=== PATIENT | male | born 1975 | race African-American/Black ===

== ENCOUNTER 2016-07-12 04:46 | Emergency (ER) | payer OTHER ==
[~2016-07-12] VITALS: Ht 185.4 cm; Wt 82.6 kg
[~2016-07-12 04:46] MED LIST: ALBUTEROL SULF8.5 GM INH; CYCLOBENZAPRINE10 MG ORAL; IBUPROFEN600 MG ORAL; PREDNISONE20 MG ORAL; PROAIR HFA8.5 GM INH
[2016-07-12] MEDS ORDERED: PredniSONE 20mg tab ORAL ONE (05:00)
[2016-07-12] MEDS ORDERED: Ipratropium 0.02% Inh Soln 2.5ml UD HHN ONE (05:00)
[2016-07-12] MEDS ORDERED: Albuterol ud Inhalation HHN ONE ×2 (05:00→05:45)
[2016-07-12 05:21] VITALS: BP 145/95
[2016-07-12] MEDS ORDERED: DULERA 200 MCG/13 GM IH (06:13)
[2016-07-12] MEDS ORDERED: ALBUTEROL SULF8.5 GM INH (06:13)
[2016-07-12] MEDS ORDERED: PREDNISONE20 MG ORAL (06:13)
--- NOTE | 2016-07-12 06:13 | Emergency Room Report ---
History of Present Illness General Chief Complaint: Dyspnea/Respdistress Source: Patient, EMS Present Illness HPI Is a 41-year-old male with a history of asthma. He get frequent exacerbation. Patient presents with chief complaint shortness of breath. Onset last night. He is out of his inhaler. Denies any fever chills denies any nausea vomiting. He thinks to call and congestion cause him to have asthma exacerbation. EMS gave him a breathing treatment which helped. No other complaint. Allergies: Coded Allergies: No Known Allergies (Unverified , 09/26/14) Patient History Past Medical History: see triage record, old chart reviewed, asthma Past Surgical History: other Pertinent Family History: none Social History: Denies: drug use Immunizations: other Reviewed Nursing Documentation: PMH: Agreed, PSxH: Agreed Nursing Documentation-PMH Hx Hypertension: Yes Hx Asthma: Yes Hx Diabetes: Yes - BORDERLINE Review of Systems Eye: Denies: blurred vision, eye pain ENT: Denies: ear pain, nose congestion, throat swelling Respiratory: Reports: cough, shortness of breath, wheezing Cardiovascular: Denies: chest pain, palpitations Gastrointestinal: Denies: abdominal pain, diarrhea, nausea, vomiting Musculoskeletal: Denies: back pain, joint pain Skin: Denies: rash Neurological: Denies: headache, numbness Endocrine: Denies: increased thirst, increased urine Hematologic/Lymphatic: Denies: easy bruising All Other Systems: negative except mentioned in HPI Physical Exam Vital Signs Date Time Temp Pulse Resp B/P Pulse Ox O2 Delivery O2 Flow Rate FiO2 07/12/16 04:51 98.1 78 20 155/97 93 Room Air 07/12/16 05:21 10.0 vitals with hypertension and hypoxemia Sp02 EP Interpretation: abnormal General Appearance: well appearing, alert, mild distress Head: normocephalic, atraumatic Eyes: bilateral eye EOMI, bilateral eye PERRL ENT: hearing grossly normal, normal pharynx Neck: full range of motion, supple, no meningismus Respiratory: chest non-tender, accessory muscle use, wheezing Cardiovascular #1: regular rate, rhythm, no murmur Gastrointestinal: normal bowel sounds, non tender, no mass, no organomegaly, no bruit, non-distended Musculoskeletal: back normal, gait/station normal, normal range of motion Psychiatric: mood/affect normal Skin: warm/dry Medical Decision Making Diagnostic Impression: Primary Impression: Asthma exacerbation ER Course Patient with asthma exacerbation. Wheezing cleared. Oxygenation normal now. Patient felt better. We'll discharge home. Last Vital Signs Date Time Temp Pulse Resp B/P Pulse Ox O2 Delivery O2 Flow Rate FiO2 07/12/16 05:29 61 18 10.0 07/12/16 05:21 145/95 100 07/12/16 05:03 Room Air 07/12/16 04:51 98.1 Status: improved Disposition: HOME, SELF-CARE Condition: Stable Scripts Mometasone/Formoterol (DULERA 200 MCG/5 MCG INHALER) 13 Gm Hfa.aer.ad 13 GM IH BID, #1 UNIT Prov: GAVIN ARORA M.D. 07/12/16 Prednisone* (PREDNISONE*) 20 Mg Tablet 60 MG ORAL DAILY, #12 TAB Prov: GAVIN ARORA M.D. 07/12/16 Albuterol Sulfate* (ALBUTEROL SULFATE MDI*) 8.5 Gm Hfa.aer.ad 2 PUFF INH Q4H Y for cough/wheezing, #1 EA 0 Refills Prov: GAVIN ARORA M.D. 07/12/16 Referrals: [facility],REFERRING (PCP) Additional Instructions: Followup with your DrBoby in 7 days. Return if symptom worsen. GAVIN ARORA M.D. July 12, 2016 06:13
[2016-07-12 06:15] VITALS: BP 148/91
== END 2016-07-12 06:15 | disposition home or self-care (01) ==
LOC: EDBD 04:46 → EMR 05:49
DX: J45.901 Unspecified asthma with (acute) exacerbation (principal); I10 Essential (primary) hypertension
CPT/HCPCS: 94640; 94664; 99284

== ENCOUNTER 2016-07-16 | Emergency (ER) | payer OTHER ==
[~2016-07-16] VITALS: Ht 193 cm; Wt 82.6 kg
[~2016-07-16] MED LIST changes: +DULERA 200 MCG/13 GM IH
[2016-07-16 00:25] VITALS: BP 154/99
[2016-07-16] MEDS ORDERED: PredniSONE 20mg tab ORAL ONE (00:30)
[2016-07-16] MEDS ORDERED: Albuterol ud Inhalation HHN ONE ×2 (00:30→01:30)
[2016-07-16] MEDS ORDERED: Ipratropium 0.02% Inh Soln 2.5ml UD HHN ONE (00:30)
--- NOTE | 2016-07-16 01:52 | Emergency Room Report ---
History of Present Illness General Chief Complaint: Asthma Source: Patient Present Illness HPI Is a 41-year-old male with history of asthma. He was here couple days ago. I saw him then. He had asthma exacerbation that clear with treatment. I will for steroid inhalers. He never filled them. He said he said he get high on drugs. Now wheezing again. No medication. Denies any other complaint. No fever or chills. No nausea no vomiting. Worse with exertion. Worse with lying flat. Worse with coughing. Allergies: Coded Allergies: No Known Allergies (Unverified , 09/26/14) Patient History Past Medical History: see triage record, old chart reviewed, asthma Past Surgical History: none Pertinent Family History: none Social History: Reports: drug use, smoking Immunizations: other Reviewed Nursing Documentation: PMH: Agreed, PSxH: Agreed Nursing Documentation-PMH Hx Hypertension: Yes Hx Asthma: Yes Hx Diabetes: Yes - BORDERLINE Review of Systems Eye: Denies: blurred vision, eye pain ENT: Denies: ear pain, nose congestion, throat swelling Respiratory: Reports: cough, shortness of breath, wheezing Cardiovascular: Denies: chest pain, palpitations Gastrointestinal: Denies: abdominal pain, diarrhea, nausea, vomiting Musculoskeletal: Denies: back pain, joint pain Skin: Denies: rash Neurological: Denies: headache, numbness Endocrine: Denies: increased thirst, increased urine Hematologic/Lymphatic: Denies: easy bruising All Other Systems: negative except mentioned in HPI Physical Exam Vital Signs Date Time Temp Pulse Resp B/P Pulse Ox O2 Delivery O2 Flow Rate FiO2 07/16/16 00:15 97.9 59 16 159/100 98 Room Air vitals with htn Sp02 EP Interpretation: reviewed, normal General Appearance: well appearing, no apparent distress, alert Head: normocephalic, atraumatic Eyes: bilateral eye EOMI, bilateral eye PERRL ENT: hearing grossly normal, normal pharynx Neck: full range of motion, supple, no meningismus Respiratory: chest non-tender, wheezing Cardiovascular #1: regular rate, rhythm, no murmur Gastrointestinal: normal bowel sounds, non tender, no mass, no organomegaly, no bruit, non-distended Musculoskeletal: back normal, gait/station normal, normal range of motion Psychiatric: mood/affect normal Skin: warm/dry Medical Decision Making Diagnostic Impression: Primary Impression: Asthma exacerbation Additional Impression: Drug abuse ER Course Patient with the wheezing. Probably exacerbated from drugs of abuse. He cleared up with treatment. He still have his prescriptions. no evidence of respiratory failure, pneumonia, ACS, dissection to name a few.We'll discharge home. Last Vital Signs Date Time Temp Pulse Resp B/P Pulse Ox O2 Delivery O2 Flow Rate FiO2 07/16/16 01:11 76 18 99 Room Air 07/16/16 00:25 97.9 154/99 Status: improved Disposition: HOME, SELF-CARE Condition: Stable Referrals: [facility],REFERRING (PCP) Patient Instructions: Asthma, Adult Additional Instructions: Abstain from drugs and alcohol. Followup with your Dr. in 2 to 3 days. Return if worse. Go fill the prescriptions that I wrote 2 days ago. GAVIN ARORA M.D. July 16, 2016 01:52
[2016-07-16 01:56] VITALS: BP 147/84
[2016-07-16 01:58] VITALS: BP 147/84
== END 2016-07-16 01:58 | disposition home or self-care (01) ==
LOC: EMR 00:34
DX: J45.901 Unspecified asthma with (acute) exacerbation (principal); F19.10 Other psychoactive substance abuse, uncomplicated; F17.200 Nicotine dependence, unspecified, uncomplicated; I10 Essential (primary) hypertension
CPT/HCPCS: 94640; 94664; 99282

== ENCOUNTER 2017-01-09 22:38 | Emergency (ER) | payer OTHER ==
[~2017-01-09] VITALS: Ht 185.4 cm; Wt 82.6 kg
[2017-01-09 22:50] VITALS: BP 164/104
--- NOTE | 2017-01-09 22:50 | Emergency Room Report ---
History of Present Illness General Chief Complaint: Asthma Source: Patient Present Illness [facility] This is a 41-year-old male with a history of asthma. He has frequent exacerbation. He's been here several times for it and also outside hospitals. He came in with chief complaint of asthma exacerbation. Onset about an hour ago. He said it triggered by stress and anxiety. He was also a smoker. He denies any drug use other than marijuana. He was last seen at Hospital week ago. Was given a prescription for inhaler. He said he left it in his friend's car. Denies any recent steroid use. No nausea no vomiting. No fever or chills. Worse with exertion. Nothing made it better. Allergies: Coded Allergies: No Known Allergies (Unverified , 09/26/14) Patient History Past Medical History: see triage record, old chart reviewed, asthma Past Surgical History: none Pertinent Family History: none Social History: Reports: smoking, drug use Immunizations: other Reviewed Nursing Documentation: PMH: Agreed, PSxH: Agreed Nursing Documentation-PMH Hx Hypertension: Yes Hx Asthma: Yes Hx Diabetes: Yes - BORDERLINE Review of Systems Eye: Denies: eye pain, blurred vision ENT: Denies: ear pain, nose congestion, throat swelling Respiratory: Reports: cough, shortness of breath, wheezing Cardiovascular: Denies: chest pain, palpitations Gastrointestinal: Denies: abdominal pain, diarrhea, nausea, vomiting Musculoskeletal: Denies: back pain, joint pain Skin: Denies: rash Neurological: Denies: headache, numbness Endocrine: Denies: increased thirst, increased urine Hematologic/Lymphatic: Denies: easy bruising All Other Systems: negative except mentioned in HPI Physical Exam Vital Signs Date Time Temp Pulse Resp B/P (MAP) Pulse Ox O2 Delivery O2 Flow Rate FiO2 01/09/17 22:44 98.2 71 20 164/104 93 Room Air vitals with high blood pressure Sp02 EP Interpretation: normal, abnormal General Appearance: well appearing, no apparent distress, alert Head: normocephalic, atraumatic Eyes: bilateral eye PERRL, bilateral eye EOMI ENT: hearing grossly normal, normal pharynx Neck: full range of motion, supple, no meningismus Respiratory: chest non-tender, decreased breath sounds, accessory muscle use, wheezing Cardiovascular #1: regular rate, rhythm, no murmur Gastrointestinal: normal bowel sounds, non tender, no mass, no organomegaly, no bruit, non-distended Musculoskeletal: back normal, gait/station normal, normal range of motion Psychiatric: mood/affect normal Skin: warm/dry Medical Decision Making Diagnostic Impression: Primary Impression: Asthma exacerbation Qualified Codes: J45.41 - Moderate persistent asthma with (acute) exacerbation ER Course Patient presents with asthma exacerbation. Greatly improved after that lasted treatment and steroid. He would benefit from a steroid inhaler. Use Advair in the past with success. We'll put him back on it. No evidence of pneumonia, sepsis, dissection, ACS to name a few. Discharge. Last Vital Signs Date Time Temp Pulse Resp B/P (MAP) Pulse Ox O2 Delivery O2 Flow Rate FiO2 01/09/17 22:44 98.2 71 20 164/104 93 Room Air Status: improved Disposition: HOME, SELF-CARE Condition: Stable Scripts Fluticasone/Salmeterol (Advair 250-50 Diskus) 1 Each Blst.w.dev 1 PUFF INH EVERY 12 HOURS, #1 EA Prov: GAVIN ARORA M.D. 01/10/17 Prednisone* (PREDNISONE*) 20 Mg Tablet 60 MG ORAL DAILY, #12 TAB Prov: GAVIN ARORA M.D. 01/10/17 Albuterol Sulfate* (ALBUTEROL SULFATE MDI*) 8.5 Gm Hfa.aer.ad 2 PUFF INH Q4H Y for cough/wheezing, #1 EA 0 Refills Prov: GAVIN ARORA M.D. 01/10/17 Patient Instructions: Asthma, Adult Additional Instructions: Abstain from smoking. Followup with your DrBoby in 2-3 days. Return if worse. GAVIN ARORA M.D. Jan 09, 2017 22:50
[2017-01-09] MEDS ORDERED: Albuterol ud Inhalation HHN ONE ×2 (23:00→23:30)
[2017-01-09] MEDS ORDERED: Ipratropium 0.02% Inh Soln 2.5ml UD HHN ONE (23:00)
[2017-01-10 00:18] VITALS: BP 148/96
[2017-01-10] MEDS ORDERED: PREDNISONE20 MG ORAL (00:56)
[2017-01-10] MEDS ORDERED: ADVAIR 250-501 EACH INH (00:56)
[2017-01-10] MEDS ORDERED: ALBUTEROL SULF8.5 GM INH (00:56)
[2017-01-10] MEDS ORDERED: Albuterol ud Inhalation HHN ONE (01:00)
[2017-01-10 01:25] VITALS: BP 152/83
[2017-01-10 01:26] VITALS: BP 152/83
== END 2017-01-10 01:35 | disposition home or self-care (01) ==
LOC: EMR 23:11
DX: J45.901 Unspecified asthma with (acute) exacerbation (principal); I10 Essential (primary) hypertension; F17.200 Nicotine dependence, unspecified, uncomplicated
CPT/HCPCS: 80307; 94640; 94664; 99284

== ENCOUNTER 2017-02-20 00:55 | Emergency (ER) | payer OTHER ==
[~2017-02-20] VITALS: Ht 185.4 cm; Wt 80.7 kg
[~2017-02-20 00:55] MED LIST changes: +ADVAIR 250-501 EACH INH
[2017-02-20] MEDS ORDERED: Ipratropium 0.02% Inh Soln 2.5ml UD HHN ONE (01:00)
[2017-02-20] MEDS ORDERED: Albuterol ud Inhalation HHN ONE ×3 (01:00→05:15)
--- NOTE | 2017-02-20 01:02 | Emergency Room Report ---
History of Present Illness General Chief Complaint: Asthma Source: Patient Present Illness HPI Is a 41-year-old male with a history of asthma. I have seen him multiple times in the past. He goes to ER frequently. He presents with asthma exacerbation. Onset about 2 hours ago. He said he lost his inhaler. This is similar presentation in the past. No fever or chills. No nausea no vomiting. He called 911. EMS gave her a breathing treatment because of the wheezing. Worse with exertion. Better with rest. Allergies: Coded Allergies: No Known Allergies (Unverified , 09/26/14) Patient History Past Medical History: see triage record, old chart reviewed, asthma Past Surgical History: none Pertinent Family History: none Social History: Reports: smoking Immunizations: other Reviewed Nursing Documentation: PMH: Agreed, PSxH: Agreed Nursing Documentation-PMH Hx Hypertension: Yes Hx Asthma: Yes Hx Diabetes: Yes - BORDERLINE Review of Systems Eye: Denies: eye pain, blurred vision ENT: Denies: ear pain, nose congestion, throat swelling Respiratory: Reports: cough, shortness of breath, wheezing Cardiovascular: Denies: chest pain, palpitations Gastrointestinal: Denies: abdominal pain, diarrhea, nausea, vomiting Musculoskeletal: Denies: back pain, joint pain Skin: Denies: rash Neurological: Denies: headache, numbness Endocrine: Denies: increased thirst, increased urine Hematologic/Lymphatic: Denies: easy bruising All Other Systems: negative except mentioned in HPI Physical Exam Vital Signs Date Time Temp Pulse Resp B/P (MAP) Pulse Ox O2 Delivery O2 Flow Rate FiO2 02/20/17 00:53 99.1 86 16 132/78 96 Room Air vitals unremarkable Sp02 EP Interpretation: reviewed, normal General Appearance: well appearing, no apparent distress, alert Head: normocephalic, atraumatic Eyes: bilateral eye PERRL, bilateral eye EOMI ENT: hearing grossly normal, normal pharynx Neck: full range of motion, supple, no meningismus Respiratory: chest non-tender, respiratory distress - Mild, decreased breath sounds, wheezing Cardiovascular #1: regular rate, rhythm, no murmur Gastrointestinal: normal bowel sounds, non tender, no mass, no organomegaly, no bruit, non-distended Musculoskeletal: back normal, gait/station normal, normal range of motion Psychiatric: mood/affect normal Skin: warm/dry Medical Decision Making Diagnostic Impression: Primary Impression: Asthma exacerbation Qualified Codes: J45.41 - Moderate persistent asthma with (acute) exacerbation ER Course This patient presents with asthma exacerbation. He required multiple treatment. Now better. Wheezing almost resolved. Back to baseline. We'll discharge home. No evidence of ACS, PE, pneumonia. Last Vital Signs Date Time Temp Pulse Resp B/P (MAP) Pulse Ox O2 Delivery O2 Flow Rate FiO2 02/20/17 00:53 99.1 86 16 132/78 96 Room Air Status: improved Disposition: HOME, SELF-CARE Condition: Stable Scripts Prednisone* (PREDNISONE*) 20 Mg Tablet 60 MG ORAL DAILY, #12 TAB Prov: GAVIN ARORA M.D. 02/20/17 Albuterol Sulfate* (ALBUTEROL SULFATE MDI*) 8.5 Gm Hfa.aer.ad 2 PUFF INH Q4H Y for cough/wheezing, #1 EA 0 Refills Prov: GAVIN ARORA M.D. 02/20/17 Patient Instructions: Asthma, Adult Additional Instructions: Stop smoking. Followup with your DrBoby in 2-3 days. Return if worse. GAVIN ARORA M.D. Feb 20, 2017 01:01
[2017-02-20 01:07] VITALS: BP 132/78
[2017-02-20 02:42] VITALS: BP 141/81
[2017-02-20 04:12] VITALS: BP 141/79
[2017-02-20] MEDS ORDERED: PREDNISONE20 MG ORAL (06:10)
[2017-02-20] MEDS ORDERED: ALBUTEROL SULF8.5 GM INH (06:10)
[2017-02-20 06:12] VITALS: BP 128/69
[2017-02-20 06:19] VITALS: BP 128/69
== END 2017-02-20 06:20 | disposition home or self-care (01) ==
LOC: EDBD 00:55 → EMR 01:02
DX: J45.901 Unspecified asthma with (acute) exacerbation (principal); I10 Essential (primary) hypertension; F17.200 Nicotine dependence, unspecified, uncomplicated
CPT/HCPCS: 99284; J7512

== ENCOUNTER 2017-03-16 01:14 | Emergency (ER) | payer OTHER ==
[~2017-03-16] VITALS: Ht 185.4 cm; Wt 81.6 kg
[2017-03-16 01:15] VITALS: BP 123/100
[2017-03-16] MEDS ORDERED: ALBUTEROL2.5 MG/3 M INH (01:19)
[2017-03-16] MEDS ORDERED: ADVAIR HFA 115-12 GM INH (01:19)
--- NOTE | 2017-03-16 01:29 | Emergency Room Report ---
History of Present Illness General Chief Complaint: Asthma Source: Patient Present Illness HPI Is a 41-year-old male well-known to me. He presents with chief complaint of shortness of breath and wheezing. He is out of his inhaler. Is a frequent occurrence. Onset today. No nausea no vomiting. No fever or chills. Worse with inspiration. He [address] EMS gave him breathing treatment. He felt better now. Denies any other complaint. Allergies: Coded Allergies: No Known Allergies (Unverified , 09/26/14) Patient History Past Medical History: see triage record, old chart reviewed, asthma Past Surgical History: other Pertinent Family History: none Social History: Denies: smoking Immunizations: other Reviewed Nursing Documentation: PMH: Agreed, PSxH: Agreed Nursing Documentation-PMH Hx Hypertension: Yes Hx Asthma: Yes Review of Systems Eye: Denies: eye pain, blurred vision ENT: Denies: ear pain, nose congestion, throat swelling Respiratory: Reports: cough, shortness of breath, wheezing Cardiovascular: Denies: chest pain, palpitations Gastrointestinal: Denies: abdominal pain, diarrhea, nausea, vomiting Musculoskeletal: Denies: back pain, joint pain Skin: Denies: rash Neurological: Denies: headache, numbness Endocrine: Denies: increased thirst, increased urine Hematologic/Lymphatic: Denies: easy bruising All Other Systems: negative except mentioned in HPI Physical Exam Vital Signs Date Time Temp Pulse Resp B/P (MAP) Pulse Ox O2 Delivery O2 Flow Rate FiO2 03/16/17 01:15 77 Room Air 98 03/16/17 01:16 98.6 14 123/100 100 vitals unremarkable Sp02 EP Interpretation: reviewed, normal General Appearance: well appearing, no apparent distress, alert Head: normocephalic, atraumatic Eyes: bilateral eye PERRL, bilateral eye EOMI ENT: hearing grossly normal, normal pharynx Neck: full range of motion, supple, no meningismus Respiratory: chest non-tender, decreased breath sounds, wheezing - Mild Cardiovascular #1: regular rate, rhythm, no murmur Gastrointestinal: normal bowel sounds, non tender, no mass, no organomegaly, no bruit, non-distended Musculoskeletal: back normal, gait/station normal, normal range of motion Psychiatric: mood/affect normal Skin: warm/dry Medical Decision Making Diagnostic Impression: Primary Impression: Asthma exacerbation Qualified Codes: J45.21 - Mild intermittent asthma with (acute) exacerbation ER Course Patient with asthma exacerbation. No evidence of PE, pneumonia, dissection to name a few. Better after breathing treatment. We'll discharge home. Last Vital Signs Date Time Temp Pulse Resp B/P (MAP) Pulse Ox O2 Delivery O2 Flow Rate FiO2 03/16/17 01:16 98.6 77 14 123/100 100 Room Air 03/16/17 01:15 98 Status: improved Disposition: HOME, SELF-CARE Condition: Stable Scripts Prednisone* (PREDNISONE*) 20 Mg Tablet 60 MG ORAL DAILY, #12 TAB Prov: GAVIN ARORA M.D. 03/16/17 Fluticasone Furoate (Arnuity Ellipta) 200 Mcg Blst.w.dev 200 MCG IH BID, #1 UNIT Prov: GAVIN ARORA M.D. 03/16/17 Albuterol Sulfate* (ALBUTEROL SULFATE MDI*) 8.5 Gm Hfa.aer.ad 2 PUFF INH Q4H Y for cough/wheezing, #1 EA 0 Refills Prov: GAVIN ARORA M.D. 03/16/17 Patient Instructions: Asthma, Adult Additional Instructions: Followup with your Dr. in 7 days. Return if symptom worsen. GAVIN ARORA M.D. Mar 16, 2017 01:29
[2017-03-16] MEDS ORDERED: Albuterol ud Inhalation HHN ONE ×2 (01:30→02:15)
[2017-03-16] MEDS ORDERED: PREDNISONE20 MG ORAL (01:31)
[2017-03-16] MEDS ORDERED: ARNUITY ELLIP200 MCG IH (01:31)
[2017-03-16] MEDS ORDERED: ALBUTEROL SULF8.5 GM INH (01:31)
[2017-03-16] MEDS ORDERED: Ipratropium 0.02% Inh Soln 2.5ml UD HHN ONE (01:45)
[2017-03-16 02:58] VITALS: BP 140/75
[2017-03-16 03:05] VITALS: BP 140/75
== END 2017-03-16 03:05 | disposition home or self-care (01) ==
LOC: EDBD 01:14 → EDUNIT# 01:14 → EMR 01:30
DX: J45.901 Unspecified asthma with (acute) exacerbation (principal); I10 Essential (primary) hypertension
CPT/HCPCS: 94640; 94664; 99284; J7512

== ENCOUNTER 2017-07-29 02:27 | Emergency (ER) | payer OTHER ==
[~2017-07-29] VITALS: Ht 185.4 cm; Wt 80.7 kg
[~2017-07-29 02:27] MED LIST changes: +ADVAIR HFA 115-12 GM INH; +ALBUTEROL2.5 MG/3 M INH; +ARNUITY ELLIP200 MCG IH
[2017-07-29 02:35] VITALS: BP 153/95
[2017-07-29] MEDS: Albuterol ud Inhalation HHN SCH ×6 (02:44→04:29)
[2017-07-29] MEDS ORDERED: Ipratropium 0.02% Inh Soln 2.5ml UD HHN ONE (02:45)
--- NOTE | 2017-07-29 02:48 | Emergency Room Report ---
History of Present Illness General Chief Complaint: Dyspnea/Respdistress Source: Patient, EMS Present Illness HPI 42-year-old male with history of asthma, current smoker p/w SOB for 1 days. SOB occurs both at rest and on exertion. + non productive cough. Denies chest pain. Patient has been using albuterol inhaler every 2 hours. Patient does not have nebulizer at home. No recent steroid use. Pt states that this episode is similar to other episodes of asthma exacerbation. Denies fever, chills. Denies sick contacts or recent travel. Allergies: Coded Allergies: No Known Allergies (Unverified , 09/26/14) Patient History Past Medical History: see triage record Past Surgical History: none Pertinent Family History: none Reviewed Nursing Documentation: PMH: Agreed; PSxH: Agreed Nursing Documentation-PMH Hx Hypertension: Yes Hx Asthma: Yes Hx Diabetes: Yes - BORDERLINE Review of Systems All Other Systems: negative except mentioned in HPI Physical Exam Vital Signs Date Time Temp Pulse Resp B/P (MAP) Pulse Ox O2 Delivery O2 Flow Rate FiO2 07/29/17 02:28 98.1 82 18 153/95 91 Room Air 98.1 Sp02 EP Interpretation: reviewed, normal General Appearance: alert, GCS 15, non-toxic, mild distress Head: normocephalic, atraumatic Eyes: bilateral eye normal inspection, bilateral eye PERRL, bilateral eye EOMI ENT: normal ENT inspection, normal pharynx, normal voice, moist mucus membranes Neck: normal inspection, full range of motion, supple Respiratory: respiratory distress, speaking full sentences, wheezing, expiration Cardiovascular #1: normal inspection, regular rate, rhythm, no edema, normal capillary refill Cardiovascular #2: 2+ radial (R), 2+ radial (L) Gastrointestinal: normal inspection, non tender, soft, non-distended, no guarding Genitourinary: no CVA tenderness Musculoskeletal: normal inspection, back normal, normal range of motion, non- tender Neurologic: normal inspection, alert, oriented x3, responsive, motor strength/ tone normal, sensory intact, normal gait, speech normal Psychiatric: normal inspection, judgement/insight normal, memory normal Skin: normal inspection, normal color, no rash, warm/dry, well hydrated, normal turgor Medical Decision Making Diagnostic Impression: Primary Impression: Asthma exacerbation ER Course 42-year-old male with history of asthma p/w SOB DDX: Asthma exacerbation Plan: Combivent nebulizer treatment x 3, steroids ER Course: Patient has been treated with combivent x 3, steroids, antibiotics.Patient's overall respiratory status has improved in ED. Patient states improvement of symptoms. Patient continues to speak in complete sentences and is not in respiratory distress. Repeat lung auscultation: good air entry with minimal/no wheezing. Repeat VS reveals normal RR and SpO2. Disposition: Patient will be discharged to home with course of steroids, albuterol and nebulizer, Patient is instructed to use albuterol inhaler as needed. Strict precautions are discussed with patient on when to emergently return to the ED including: persistent or worsening SOB, chest pain, fever, chills, which could indicate severe illness. Patient verbalized understanding. Patient is to follow up with her/his PMD within 5 days. Patient agrees with plan. Please note that this Emergency Department Report was dictated using [employer] technology software, occasionally this can lead to erroneous entry secondary to interpretation by the dictation equipment. Last Vital Signs Date Time Temp Pulse Resp B/P (MAP) Pulse Ox O2 Delivery O2 Flow Rate FiO2 07/29/17 02:28 98.1 82 18 153/95 91 Room Air 98.1 Disposition: HOME, SELF-CARE Condition: Improved Scripts Nebulizer (Compact Compressor Nebulizer) 1 Each Each [facility], #1 Prov: Kateryna Pickard M.D. 07/29/17 Albuterol Sulfate* (ALBUTEROL SULFATE HHN*) 2.5 Mg/3 Ml Vial.neb 2.5 MG HHN Q4H PRN for Shortness of Breath, #25 VIAL Prov: Kateryna Pickard M.D. 07/29/17 Prednisone* (PREDNISONE*) 20 Mg Tablet 40 MG ORAL DAILY for 5 Days, #10 TAB Prov: Kateryna Pickard M.D. 07/29/17 Referrals: [facility],REFERRING (PCP) Kateryna Pickard M.D. July 29, 2017 02:48
[2017-07-29] MEDS ORDERED: PREDNISONE20 MG ORAL (03:21)
[2017-07-29] MEDS ORDERED: COMPACT COMPRE1 EACH MC (03:21)
[2017-07-29] MEDS ORDERED: ALBUTEROL2.5 MG/3 M HHN (03:21)
[2017-07-29 04:30] VITALS: BP 134/62
[2017-07-29 04:40] VITALS: BP 134/62
== END 2017-07-29 04:40 | disposition home or self-care (01) ==
LOC: EDBD 02:27 → EMR 02:41
DX: J45.901 Unspecified asthma with (acute) exacerbation (principal)
CPT/HCPCS: 94640; 99284; J7512

== ENCOUNTER 2017-08-14 00:40 | Emergency (ER) | payer OTHER ==
[~2017-08-14] VITALS: Ht 185.4 cm; Wt 82.6 kg
[~2017-08-14 00:40] MED LIST changes: +ALBUTEROL2.5 MG/3 M HHN; +COMPACT COMPRE1 EACH MC
[2017-08-14 00:52] VITALS: BP 146/102
[2017-08-14] MEDS ORDERED: Ipratropium 0.02% Inh Soln 2.5ml UD HHN ONE (01:00)
[2017-08-14] MEDS ORDERED: Albuterol ud Inhalation HHN ONE ×2 (01:00→02:15)
--- NOTE | 2017-08-14 01:26 | Emergency Room Report ---
History of Present Illness General Chief Complaint: Asthma Source: Patient, Medical Record, EMS Present Illness HPI Is a 42-year-old male with a history of asthma. I seen in numerous times before. He also was seen here on July 29 for asthma exacerbation. He was prescribed an inhaler and steroid. He said because of the frequency of which she filled his medication, the pharmacy said he can't fill it until August 19. He then present to see her for the same thing. He received prescription for Singulair and Atrovent. He was able to fill that. He continued to smoke heavily for the next few days including marijuana. Now he presents with chief complaint of asthma exacerbation. Per EMS he was very tight tape gave him albuterol. He denies any fever chills but no nausea no vomiting. Worse with exertion. Better with rest. Again out of his albuterol inhaler. Allergies: Coded Allergies: No Known Allergies (Unverified , 09/26/14) Patient History Past Medical History: see triage record, old chart reviewed Past Surgical History: other Pertinent Family History: none Social History: Reports: smoking, drug use - marijuana Immunizations: other Reviewed Nursing Documentation: PMH: Agreed; PSxH: Agreed Nursing Documentation-PMH Hx Hypertension: Yes Hx Asthma: Yes Hx Diabetes: Yes - BORDERLINE Review of Systems Eye: Denies: eye pain, blurred vision ENT: Denies: ear pain, nose congestion, throat swelling Respiratory: Reports: cough, shortness of breath, wheezing Cardiovascular: Denies: chest pain, palpitations Gastrointestinal: Denies: abdominal pain, diarrhea, nausea, vomiting Musculoskeletal: Denies: back pain, joint pain Skin: Denies: rash Neurological: Denies: headache, numbness Endocrine: Denies: increased thirst, increased urine Hematologic/Lymphatic: Denies: easy bruising All Other Systems: negative except mentioned in HPI Physical Exam Vital Signs Date Time Temp Pulse Resp B/P (MAP) Pulse Ox O2 Delivery O2 Flow Rate FiO2 08/14/17 00:44 98.3 71 18 148/100 100 Simple Mask 5.0 98.2 08/14/17 01:04 40 vitals unremarkable Sp02 EP Interpretation: reviewed, normal General Appearance: well appearing, no apparent distress, alert Head: normocephalic, atraumatic Eyes: bilateral eye PERRL, bilateral eye EOMI ENT: hearing grossly normal, normal pharynx Neck: full range of motion, supple, no meningismus Respiratory: chest non-tender, decreased breath sounds, accessory muscle use, wheezing Cardiovascular #1: regular rate, rhythm, no murmur Gastrointestinal: normal bowel sounds, non tender, no mass, no organomegaly, no bruit, non-distended Musculoskeletal: back normal, gait/station normal, normal range of motion Psychiatric: mood/affect normal Skin: warm/dry Medical Decision Making Diagnostic Impression: Primary Impression: Asthma exacerbation Qualified Codes: J45.901 - Unspecified asthma with (acute) exacerbation ER Course Patient with asthma exacerbation. He is out of his inhaler of albuterol. Unable to fill it because of insurance. I will try to him an inhaler here. After several treatment and steroid he is back to baseline and no longer wheezing. Said he was to go home. We'll discharge home with prescription for prednisone. Last Vital Signs Date Time Temp Pulse Resp B/P (MAP) Pulse Ox O2 Delivery O2 Flow Rate FiO2 08/14/17 01:05 79 18 40 08/14/17 01:04 99 08/14/17 00:52 98.2 146/102 Simple Mask 5.0 98.2 Status: improved Disposition: HOME, SELF-CARE Condition: Stable Scripts Prednisone* (PREDNISONE*) 20 Mg Tablet 60 MG ORAL DAILY, #5 TAB Prov: GAVIN ARORA M.D. 08/14/17 Patient Instructions: Asthma, Adult Additional Instructions: Follow-up with your doctor in 7 days. Stop smoking. Return if worse. GAVIN ARORA M.D. Aug 14, 2017 01:26
[2017-08-14 01:52] VITALS: BP 136/84
[2017-08-14] MEDS ORDERED: PREDNISONE20 MG ORAL (02:56)
[2017-08-14] MEDS ORDERED: Albuterol 90mcg Inhaler 8gm INH PRN (03:00)
[2017-08-14 03:05] VITALS: BP 142/89
== END 2017-08-14 03:11 | disposition home or self-care (01) ==
LOC: EDBD 00:40 → EDUNIT# 00:40 → EMR 01:00
DX: J45.901 Unspecified asthma with (acute) exacerbation (principal); I10 Essential (primary) hypertension; E11.9 Type 2 diabetes mellitus without complications; F12.90 Cannabis use, unspecified, uncomplicated
CPT/HCPCS: 94640; 94664; 99283; J7512

== ENCOUNTER 2017-10-27 03:56 | Emergency (ER) | payer OTHER ==
[~2017-10-27] VITALS: Ht 185.4 cm; Wt 93.4 kg
[2017-10-27 04:10] VITALS: BP 138/88
[2017-10-27] MEDS ORDERED: ALBUTEROL SULF8.5 GM INH (05:13)
[2017-10-27] MEDS ORDERED: Albuterol ud Inhalation HHN ONE (05:15)
[2017-10-27] MEDS ORDERED: Ipratropium 0.02% Inh Soln 2.5ml UD HHN ONE (05:15)
--- NOTE | 2017-10-27 05:15 | Emergency Room Report ---
History of Present Illness General Chief Complaint: Asthma Source: Patient Present Illness HPI Patient presents with complaints of asthma exacerbation Reports that he was given a Qvar and initially thought that this was the same as the quick relief medication However after initial attempts his asthma continued Did not want to get any worse and contacted paramedics denies any chest pain denies any back or flank pain denies any fevers Denies any vomiting or diarrhea Allergies: Coded Allergies: No Known Allergies (Unverified , 09/26/14) Patient History Past Medical History: see triage record Pertinent Family History: none Reviewed Nursing Documentation: PMH: Agreed; PSxH: Agreed Nursing Documentation-PMH Hx Hypertension: Yes Hx Asthma: Yes Hx Diabetes: Yes - BORDERLINE Review of Systems All Other Systems: negative except mentioned in HPI Physical Exam Vital Signs Date Time Temp Pulse Resp B/P (MAP) Pulse Ox O2 Delivery O2 Flow Rate FiO2 10/27/17 03:59 98.1 70 18 138/88 98 Room Air 98.1 Sp02 EP Interpretation: reviewed, normal General Appearance: well appearing, no apparent distress Head: normocephalic, atraumatic Eyes: bilateral eye PERRL, bilateral eye EOMI ENT: hearing grossly normal, normal pharynx, TMs + canals normal, uvula midline Neck: full range of motion, supple, no meningismus, no bony tend Respiratory: no respiratory distress, no retraction, no accessory muscle use, wheezing - Bilaterally Cardiovascular #1: normal peripheral pulses, regular rate, rhythm, no edema, no gallop, no JVD, no murmur Gastrointestinal: normal bowel sounds, non tender, soft, no mass, no organomegaly, non-distended, no guarding, no hernia, no pulsatile mass, no rebound Genitourinary: no CVA tenderness Musculoskeletal: normal inspection Neurologic: oriented x3, responsive, md physician dermatologist III-XII nml as tested, motor strength/ tone normal, sensory intact Psychiatric: mood/affect normal Skin: normal color, no rash, warm/dry, palpation normal Lymphatic: normal inspection, no adenopathy Medical Decision Making Diagnostic Impression: Primary Impression: Asthma exacerbation ER Course 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 also receiving breathing treatment here and continues to feel better Lung sounds are clear Patient provided with albuterol which he is requesting And stable for close outpatient follow-up Last Vital Signs Date Time Temp Pulse Resp B/P (MAP) Pulse Ox O2 Delivery O2 Flow Rate FiO2 10/27/17 03:59 98.1 70 18 138/88 98 Room Air 98.1 Status: improved Disposition: HOME, SELF-CARE Condition: Improved Scripts Albuterol Sulfate* (ALBUTEROL SULFATE MDI*) 8.5 Gm Hfa.aer.ad 2 PUFF INH Q4H PRN for cough/wheezing, #2 EA 0 Refills Prov: Ni Lopez DO 10/27/17 Referrals: [facility],REFERRING (PCP) Patient Instructions: Asthma, Adult Additional Instructions: Patient is provided with the discharge instructions notified to follow up with primary doctor in the next 2-3 days otherwise return to the er with any worsening symptoms. Please note that this report is being documented using [employer] technology. This can lead to erroneous entry secondary to incorrect interpretation by the dictating instrument. Ni Lopez DO Oct 27, 2017 05:15
[2017-10-27 06:07] VITALS: BP 127/83
== END 2017-10-27 06:08 | disposition home or self-care (01) ==
LOC: EDBD 03:56 → EMR 04:08
DX: J45.901 Unspecified asthma with (acute) exacerbation (principal); I10 Essential (primary) hypertension; R73.03 Prediabetes
CPT/HCPCS: 94640; 94664; 99284

== ENCOUNTER 2017-11-23 01:36 | Emergency (ER) | payer OTHER ==
[~2017-11-23] VITALS: Ht 185.4 cm; Wt 91.6 kg
[2017-11-23 01:50] VITALS: BP 130/89
[2017-11-23] MEDS: Ipratropium 0.02% Inh Soln 2.5ml UD HHN SCH ×3 (01:51→02:15)
[2017-11-23] MEDS: Albuterol ud Inhalation HHN SCH ×3 (01:51→02:15)
[2017-11-23] MEDS ORDERED: PREDNISONE20 MG ORAL (02:52)
[2017-11-23] MEDS ORDERED: ALBUTEROL SULF8.5 GM INH (02:52)
--- NOTE | 2017-11-23 03:21 | Emergency Room Report ---
History of Present Illness General Chief Complaint: Asthma Source: Patient Present Illness HPI 42-year-old male presents ED with shortness of breath. Brought in by EMS. States that patient has been wheezing since last night. History of asthma. States that he ran out of his inhaler. Was given breathing treatment by EMS and states he is feeling better. Denies cough. Denies fevers or chills. Denies chest pain. No other aggravating relieving factors. Denies any other associated symptoms Allergies: Coded Allergies: No Known Allergies (Unverified , 09/26/14) Patient History Past Medical History: HTN, asthma Past Surgical History: none Pertinent Family History: none Social History: Denies: smoking, alcohol use, drug use Immunizations: UTD Reviewed Nursing Documentation: PMH: Agreed; PSxH: Agreed Nursing Documentation-PMH Past Medical History: No History, Except For Hx Hypertension: Yes Hx Asthma: Yes Review of Systems All Other Systems: negative except mentioned in HPI Physical Exam Vital Signs Date Time Temp Pulse Resp B/P (MAP) Pulse Ox O2 Delivery O2 Flow Rate FiO2 11/23/17 01:37 98.4 96 18 136/96 100 Simple Mask 15.0 98.4 11/23/17 01:43 21 Sp02 EP Interpretation: reviewed, normal General Appearance: no apparent distress, alert, GCS 15, non-toxic Head: normocephalic Eyes: bilateral eye normal inspection, bilateral eye PERRL ENT: normal ENT inspection Neck: normal inspection Respiratory: wheezing Cardiovascular #1: regular rate, rhythm, no edema Gastrointestinal: normal inspection Rectal: deferred Genitourinary: no CVA tenderness Musculoskeletal: normal inspection Neurologic: alert, oriented x3, responsive, motor strength/tone normal, sensory intact, speech normal Psychiatric: normal inspection Skin: normal inspection Lymphatic: normal inspection Medical Decision Making Diagnostic Impression: Primary Impression: Asthma attack Qualified Codes: J45.901 - Unspecified asthma with (acute) exacerbation ER Course Hospital Course 42-year-old male presents to ED complaining of wheezing. h/o asthma Differential diagnoses include: URI, bronchitis, asthma/COPD, pneumonia Clinical course Patient placed on stretcher. After initial history, physical exam reveals a male in no acute distress. Bilateral TM unremarkable. No pharyngeal erythema. No tonsillar exudates. No lymphadenopathy. Mild wheezing noted on exam, no signs of respiratory distress or retractions. Patient given Prednisone and albuterol treatment in ED During ED course patient was agitated and combative with nursing staff and respiratory therapist. Screaming often. I asked patient multiple times to keep his voice down and behave himself in appropriate manner. Upon discharge patient was also very agitated. Stating he wants asleep. Patient was discharged with his papers in stable condition. Screaming and cursing Diagnosis - asthma attack Stable and discharged home with prescriptions for albuterol, prednisone. Instructed to followup with PMD. Return to ED if symptoms recur or worsen Last Vital Signs Date Time Temp Pulse Resp B/P (MAP) Pulse Ox O2 Delivery O2 Flow Rate FiO2 11/23/17 02:53 90 18 99 Room Air 21 11/23/17 02:16 15.0 11/23/17 01:50 98.3 130/89 98.3 Status: improved Disposition: HOME, SELF-CARE Condition: Stable Scripts Albuterol Sulfate* (ALBUTEROL SULFATE MDI*) 8.5 Gm Hfa.aer.ad 2 PUFF INH Q6H, #1 EA 0 Refills Prov: Douglas Johnson MD 11/23/17 Prednisone* (PREDNISONE*) 20 Mg Tablet 40 MG ORAL DAILY, #10 TAB Prov: Douglas Johnson MD 11/23/17 Referrals: [facility],REFERRING (PCP) Patient Instructions: Asthma, Adult Douglas Johnson MD Nov 23, 2017 03:21
[2017-11-23 03:25] VITALS: BP 131/87
== END 2017-11-23 03:25 | disposition home or self-care (01) ==
LOC: EDUNIT# 01:36 → EDBD 01:36 → EMR 01:48
DX: J45.901 Unspecified asthma with (acute) exacerbation (principal); I10 Essential (primary) hypertension
CPT/HCPCS: 94640; 94664; 99284; J7512

== ENCOUNTER 2018-04-02 23:24 | Emergency (ER) | payer OTHER ==
[~2018-04-02] VITALS: Ht 185.4 cm; Wt 82.6 kg
[2018-04-02 23:27] VITALS: BP 152/110
[2018-04-02] MEDS ORDERED: Albuterol ud Inhalation HHN ONE (23:30)
--- NOTE | 2018-04-03 00:17 | Emergency Room Report ---
History of Present Illness General Chief Complaint: Asthma Source: Patient, Medical Record, EMS Present Illness HPI Is a 42-year-old male with a history of asthma. He presents with chief complaint of asthma exacerbation short of breath. He is well-known to me. He' s been here numerous [facility]. He was just at [facility] today for shortness of breath. He is ran out of his inhaler. He was seen irrigated breathing treatment and prescription for inhalers. Also prescription for prednisone. He said the pharmacy would not fill his inhaler said is why he called 911. He wanted of free sample. He denies any nausea vomiting. Mild wheezing. Worse with exertion. Better with rest. Similar symptom in the past. Allergies: Coded Allergies: No Known Allergies (Unverified , 09/26/14) Patient History Past Medical History: see triage record, old chart reviewed, asthma Past Surgical History: other Pertinent Family History: none Social History: Reports: smoking Immunizations: other Reviewed Nursing Documentation: PMH: Agreed; PSxH: Agreed Nursing Documentation-PMH Hx Hypertension: Yes Hx Asthma: Yes Review of Systems Eye: Denies: eye pain, blurred vision ENT: Denies: ear pain, nose congestion, throat swelling Respiratory: Reports: cough, shortness of breath, wheezing Cardiovascular: Denies: chest pain, palpitations Gastrointestinal: Denies: abdominal pain, diarrhea, nausea, vomiting Musculoskeletal: Denies: back pain, joint pain Skin: Denies: rash Neurological: Denies: headache, numbness Endocrine: Denies: increased thirst, increased urine Hematologic/Lymphatic: Denies: easy bruising All Other Systems: negative except mentioned in HPI Physical Exam Vital Signs Date Time Temp Pulse Resp B/P (MAP) Pulse Ox O2 Delivery O2 Flow Rate FiO2 04/02/18 23:18 98.8 86 18 152/110 98 Room Air 04/02/18 23:27 99 vitals with hypertension Sp02 EP Interpretation: reviewed, normal General Appearance: well appearing, no apparent distress, alert Head: normocephalic, atraumatic Eyes: bilateral eye PERRL, bilateral eye EOMI ENT: hearing grossly normal, normal pharynx Neck: full range of motion, supple, no meningismus Respiratory: chest non-tender, normal breath sounds, wheezing - Slight wheezing Cardiovascular #1: regular rate, rhythm, no murmur Gastrointestinal: normal bowel sounds, non tender, no mass, no organomegaly, no bruit, non-distended Musculoskeletal: back normal, gait/station normal, normal range of motion Psychiatric: mood/affect normal Skin: warm/dry Medical Decision Making Diagnostic Impression: Primary Impression: Asthma exacerbation Qualified Codes: J45.21 - Mild intermittent asthma with (acute) exacerbation ER Course Patient with asthma exacerbation. Wheezing cleared after breathing treatment. I gave him an inhaler to go. We'll discharge home. No evidence of pneumonia. Last Vital Signs Date Time Temp Pulse Resp B/P (MAP) Pulse Ox O2 Delivery O2 Flow Rate FiO2 04/02/18 23:58 21 04/02/18 23:51 73 20 100 Room Air 04/02/18 23:27 98.8 152/110 Status: improved Disposition: HOME, SELF-CARE Condition: Stable Patient Instructions: Asthma, Adult Additional Instructions: Fill your prescriptions. Follow-up with your doctor in 7 days. Return of worse. Jason Monte MD Apr 03, 2018 00:17
[2018-04-03] MEDS ORDERED: Albuterol 90mcg Inhaler 8gm INH PRN (00:30)
[2018-04-03 00:37] VITALS: BP 148/105
[2018-04-03 00:38] VITALS: BP 148/105
== END 2018-04-03 00:40 | disposition home or self-care (01) ==
LOC: EDBD 23:24 → EMR 23:55
DX: J45.21 Mild intermittent asthma with (acute) exacerbation (principal); I10 Essential (primary) hypertension; F17.200 Nicotine dependence, unspecified, uncomplicated
CPT/HCPCS: 94640; 99283

== ENCOUNTER 2018-04-10 02:13 | Emergency (ER) | payer OTHER ==
[~2018-04-10] VITALS: Ht 182.9 cm; Wt 81.6 kg
--- NOTE | 2018-04-10 02:15 | NUR ---
ED Nurse Note: pt brought in by [facility] c/o med refill for inhaler and asthma, [facility] gave breathing tx x1. pt AA&ox4, gcs=15, skin warm and dry, LS wheezing to auscultation, resp even and unlabored, -n/v/d, ambulates w/ steady gait. nsr on dial painter, will cont monitor. RT contacted.
[2018-04-10] MEDS ORDERED: NKM (02:16)
[2018-04-10] MEDS ORDERED: Ipratropium 0.02% Inh Soln 2.5ml UD HHN ONE (02:30)
[2018-04-10] MEDS: Albuterol ud Inhalation HHN SCH ×3 (02:34→03:00)
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
[2018-04-10 03:24] VITALS: BP 138/68
--- NOTE | 2018-04-10 03:24 | NUR ---
ED Nurse Note: pt reports he is hungry, verified w/ ermd and provided sandwich and juice, pt reports breathing is better with tx.
--- NOTE | 2018-04-10 03:40 | Diagnostic Imaging Report ---
EXAM: XR Chest, 1 View CLINICAL HISTORY: Dyspnea. TECHNIQUE: Frontal view of the chest. COMPARISON: No relevant prior studies available. FINDINGS: Lungs: Subtle right infrahilar opacity. Lungs otherwise clear. Pleural space: Unremarkable. No pneumothorax. Heart: Unremarkable. No cardiomegaly. Mediastinum: Unremarkable. Bones/joints: Subtle irregularity of right seventh rib may represent healed fracture. Osseous structures otherwise unremarkable. IMPRESSION: 1. Subtle right infrahilar opacity may be related to atelectasis. Other etiologies including subtle infiltrate not entirely excluded. Lateral chest radiograph would be helpful to further assess. 2. No pleural effusion or pneumothorax. 3. Subtle irregularity of right seventh rib may represent healed fracture. Correlate clinically. Osseous structures otherwise unremarkable.
--- NOTE | 2018-04-10 05:00 | NUR ---
ED Nurse Note: discharge endorsed to Tennille Braswell
--- NOTE | 2018-04-10 05:01 | NUR ---
ED Nurse Note: Received report from Mak/PRANAV. Pt is A/o x 4.
[2018-04-10] MEDS ORDERED: ALBUTEROL SULF8.5 GM INH (05:21)
[2018-04-10] MEDS ORDERED: PREDNISONE20 MG ORAL (05:21)
[2018-04-10 05:40] VITALS: BP 120/68
--- NOTE | 2018-04-10 06:38 | NUR ---
Homeless Discharge: Patient is being discharged from medical care. Awake, alert and oriented x4. After care instructions, Patient verbalized understanding of After care instructions; at this time patient does not request medications, equipment or placement. Patient signed the medical record for discharge. All medical devices such as ID band were removed. Patient ambulated out with all personal belongings with steady gait.
== END 2018-04-10 05:40 | disposition home or self-care (01) ==
LOC: EDBD 02:13 → EMR 03:12
DX: J45.41 Moderate persistent asthma with (acute) exacerbation (principal); I10 Essential (primary) hypertension; F12.90 Cannabis use, unspecified, uncomplicated
CPT/HCPCS: 71045; 94640; 94664; 99284; J7512

== ENCOUNTER 2018-04-18 22:55 | Emergency (ER) | payer OTHER ==
[~2018-04-18] VITALS: Ht 177.8 cm; Wt 81.6 kg
[~2018-04-18 22:55] MED LIST changes: +NKM
[2018-04-18 23:05] VITALS: BP 137/62
--- NOTE | 2018-04-18 23:10 | NUR ---
ED Nurse Note: [facility], alert and oriented x 4, pt here wtih c/o having sob, pt has asthma and lost his inhaler for past 2 days, pt noted with wheezes heard, o2 sat=97% on ra, pt denies cp or any pain, denies fevers, nausea or emesis, pt immediately assisted wtih gowning and placed on cardiac monitoring, will resume care as ordered and clsoely montior.
[2018-04-18] MEDS ORDERED: ALBUTEROL SULF8.5 GM INH (23:13)
[2018-04-18] MEDS ORDERED: PREDNISONE20 MG ORAL (23:13)
[2018-04-18] MEDS ORDERED: Albuterol/Ipratropium 3ml neb HHN ONE (23:15)
[2018-04-19] MEDS ORDERED: Albuterol/Ipratropium 3ml neb HHN ONE (00:45)
--- NOTE | 2018-04-19 00:58 | Emergency Room Report ---
History of Present Illness General Chief Complaint: Upper Respiratory Illness Source: Patient, EMS Present Illness HPI Patient is a 42-year-old male with a history of asthma who presented after increased cough and difficulty breathing. Patient reports having run out of his albuterol inhaler. Patient had not been having a fever. He denies any productive cough. Patient denies being a smoker. Patient states that he normally takes albuterol but had run out. Patient had been seen approximately 1 week prior and had been given prescriptions however been unable to fill them. Allergies: Coded Allergies: No Known Allergies (Unverified , 09/26/14) Patient History Past Medical History: see triage record Reviewed Nursing Documentation: PMH: Agreed; PSxH: Agreed Nursing Documentation-PMH Past Medical History: No History, Except For Hx Hypertension: Yes Hx Asthma: Yes Review of Systems All Other Systems: negative except mentioned in HPI Physical Exam Vital Signs Date Time Temp Pulse Resp B/P (MAP) Pulse Ox O2 Delivery O2 Flow Rate FiO2 04/18/18 22:55 97.7 82 22 137/62 97 Room Air 04/18/18 23:21 21 Sp02 EP Interpretation: reviewed, normal General Appearance: normal inspection, well appearing, no apparent distress, alert, GCS 15 Head: atraumatic ENT: normal ENT inspection, hearing grossly normal, normal voice Neck: normal inspection, full range of motion, supple, no bony tend Respiratory: normal inspection, no respiratory distress, no retraction, speaking full sentences, wheezing Cardiovascular #1: regular rate, rhythm, no edema Gastrointestinal: normal inspection, normal bowel sounds, non tender, soft, no guarding, no hernia Genitourinary: no CVA tenderness Musculoskeletal: normal inspection, back normal, normal range of motion Neurologic: normal inspection, alert, oriented x3, responsive, security alarm technician III-XII nml as tested, speech normal Psychiatric: normal inspection, judgement/insight normal, mood/affect normal Skin: normal inspection, normal color, no rash Medical Decision Making Diagnostic Impression: Primary Impression: Asthma exacerbation ER Course Patient presented for increased cough. Differential diagnosis include was not limited to bronchitis, pneumonia, asthma exacerbation, influenza among others. Patient has a benign exam and does not appear to require any further imaging or laboratory testing at this time patient was given breathing treatment as well as oral steroids. Patient was noted to be noncompliant with his recent prescriptions of medications. He was given prescriptions for further oral steroids as well as albuterol inhaler. He was advised to return his if worse Last Vital Signs Date Time Temp Pulse Resp B/P (MAP) Pulse Ox O2 Delivery O2 Flow Rate FiO2 04/19/18 00:52 21 04/19/18 00:52 94 18 98 Room Air 04/18/18 23:05 97.7 137/62 Status: improved Disposition: HOME, SELF-CARE Condition: Stable Scripts Albuterol Sulfate* (ALBUTEROL SULFATE MDI*) 8.5 Gm Hfa.aer.ad 2 PUFF INH Q4H PRN for cough/wheezing, #1 EA 0 Refills Prov: Radames Veilz MD 04/18/18 Prednisone* (PREDNISONE*) 20 Mg Tablet 40 MG ORAL DAILY, #10 TAB Prov: Radames Veliz MD 04/18/18 Patient Instructions: Asthma, Adult Radames Veliz MD Apr 19, 2018 00:58
[2018-04-19 01:15] VITALS: BP 144/69
--- NOTE | 2018-04-19 01:25 | NUR ---
ED Nurse Note: Pt being d/c to home, denies being homeless, pt [place], alert and oriented x 4, ambulatory with steady gait, no sob or labored breathing noted, o2 sat=98% on ra, pt deneis cp or any pain, pt given f/u info, after care instructions and re-verbalizes proper medication administration, pt armband removed, nad noted during d/c to home.
[2018-04-19 01:39] VITALS: BP 144/69
== END 2018-04-19 01:35 | disposition home or self-care (01) ==
LOC: EDBD 22:55 → EMR 23:14
DX: J45.901 Unspecified asthma with (acute) exacerbation (principal); I10 Essential (primary) hypertension
CPT/HCPCS: 94640; 99284; J7512; J7620

== ENCOUNTER 2018-12-17 22:17 | Emergency (ER) | payer OTHER ==
[~2018-12-17] VITALS: Ht 185.4 cm; Wt 82.6 kg
--- NOTE | 2018-12-17 22:25 | NUR ---
ED Nurse Note: Recieved pt BIBA with c/o asthma attack, pt has hx of asthma and states is out of meds, pt deneis cp or any other complaints or discomforts, pt has mild sob noted on exertion, none at rest, o2 sat=97% on ra.
[2018-12-17] MEDS ORDERED: Ipratropium 0.02% Inh Soln 2.5ml UD HHN ONE (22:30)
[2018-12-17] MEDS ORDERED: Albuterol ud Inhalation HHN ONE (22:30)
--- NOTE | 2018-12-17 22:45 | Emergency Room Report ---
History of Present Illness General Chief Complaint: Asthma Source: Patient Present Illness HPI 43-year-old male well-known to me in this ER. He presents with chief complaint of asthma exacerbation. There is a frequent occurrence. Is been here multiple times. He was at a bus stop and had some wheezing. He is out of his inhaler. Last ER visit was a month and a half ago at [facility]. He denies any fever chills but no nausea no vomiting. He received breathing treatment and felt better now. Denies any other complaint. Coughing is nonproductive nature. Worse with exertion. Better with rest. Allergies: Coded Allergies: No Known Allergies (Unverified , 09/26/14) Patient History Past Medical History: see triage record, old chart reviewed, asthma Past Surgical History: none Pertinent Family History: none Social History: Denies: smoking Immunizations: other Reviewed Nursing Documentation: PMH: Agreed; PSxH: Agreed Nursing Documentation-PMH Past Medical History: No History, Except For Hx Hypertension: Yes Hx Asthma: Yes Review of Systems Eye: Denies: eye pain, blurred vision ENT: Denies: ear pain, nose congestion, throat swelling Respiratory: Reports: cough, shortness of breath, wheezing Cardiovascular: Denies: chest pain, palpitations Gastrointestinal: Denies: abdominal pain, diarrhea, nausea, vomiting Musculoskeletal: Denies: back pain, joint pain Skin: Denies: rash Neurological: Denies: headache, numbness Endocrine: Denies: increased thirst, increased urine Hematologic/Lymphatic: Denies: easy bruising All Other Systems: negative except mentioned in HPI Physical Exam Vital Signs Date Time Temp Pulse Resp B/P (MAP) Pulse Ox O2 Delivery O2 Flow Rate FiO2 12/17/18 22:12 97.9 86 19 156/98 (117) 100 Room Air 12/17/18 22:35 28 Vitals with high blood pressure Sp02 EP Interpretation: reviewed, normal General Appearance: well appearing, no apparent distress, alert Head: normocephalic, atraumatic Eyes: bilateral eye PERRL, bilateral eye EOMI ENT: hearing grossly normal, normal pharynx Neck: full range of motion, supple, no meningismus Respiratory: chest non-tender, wheezing - Expiratory Cardiovascular #1: regular rate, rhythm, no murmur Gastrointestinal: normal bowel sounds, non tender, no mass, no organomegaly, no bruit, non-distended Musculoskeletal: back normal, gait/station normal, normal range of motion Psychiatric: mood/affect normal Medical Decision Making Diagnostic Impression: Primary Impression: Asthma exacerbation Qualified Codes: J45.21 - Mild intermittent asthma with (acute) exacerbation ER Course This patient presents with asthma exacerbation. Most likely because he is out of his medication and smoking. No evidence of ACS, PE, pneumonia to name a few. Better after breathing treatment. Will discharge home. Last Vital Signs Date Time Temp Pulse Resp B/P (MAP) Pulse Ox O2 Delivery O2 Flow Rate FiO2 12/17/18 22:40 21 12/17/18 22:35 80 18 91 Room Air 12/17/18 22:12 97.9 156/98 (117) Status: improved Disposition: HOME, SELF-CARE Condition: Stable Scripts Fluticasone/Vilanterol (Breo Ellipta 200-25 Mcg INH) 1 Each Blst.w.dev 1 EACH IH BID, #1 UNIT Prov: Jason Monte MD 12/17/18 Prednisone* (PREDNISONE*) 20 Mg Tablet 40 MG ORAL DAILY, #8 TAB Prov: Jason Monte MD 12/17/18 Albuterol Sulfate* (ALBUTEROL SULFATE MDI*) 8.5 Gm Hfa.aer.ad 2 PUFF INH Q4H PRN for cough/wheezing, #1 EA 0 Refills Prov: Jason Monte MD 12/17/18 Patient Instructions: Asthma, Adult Additional Instructions: follow-up with your doctor in 7 days. Return if symptoms worsen. Jason Monte MD Dec 17, 2018 22:45
[2018-12-17] MEDS ORDERED: PREDNISONE20 MG ORAL (22:47)
[2018-12-17] MEDS ORDERED: ALBUTEROL SULF8.5 GM INH (22:47)
[2018-12-17] MEDS ORDERED: BREO ELLIPTA 21 EACH IH (22:47)
[2018-12-17 23:00] VITALS: BP 156/98
--- NOTE | 2018-12-17 23:05 | NUR ---
ER DISCHARGE NOTE: Patient is cleared to be discharged per ERMD, pt is aox4, on room air, with stable vital signs. pt was given dc and prescription instructions, pt was able to verbalize understanding, pt id band removed without complications. pt is able to ambulate with steady gait. pt took all belongings.
[2018-12-17 23:10] VITALS: BP 156/98
== END 2018-12-17 23:10 | disposition home or self-care (01) ==
LOC: EDBD 22:17 → EMR 22:36
DX: J45.21 Mild intermittent asthma with (acute) exacerbation (principal); I10 Essential (primary) hypertension; Z79.51 Long term (current) use of inhaled steroids
CPT/HCPCS: 94640; J7512; Z7502; 99283

== ENCOUNTER 2019-01-18 21:45 | Emergency (ER) | payer OTHER ==
[~2019-01-18] VITALS: Ht 185.4 cm; Wt 82.6 kg
[2019-01-18 21:45] VITALS: BP 156/103
[~2019-01-18 21:45] MED LIST changes: +BREO ELLIPTA 21 EACH IH
--- NOTE | 2019-01-18 21:45 | NUR ---
ED Nurse Note: Patient presents brought in by ambulance with complaints of SOB. EKG negative for Stemi. patient appears calm, symmetrical breathing, saturation at normal level, A&Ox4, ambulatory with steady gait. Will continue to monitor.
[2019-01-18] MEDS ORDERED: Ipratropium 0.02% Inh Soln 2.5ml UD HHN ONE (22:00)
--- NOTE | 2019-01-18 22:08 | Emergency Room Report ---
History of Present Illness General Chief Complaint: Asthma Source: Patient Present Illness HPI Disclaimer: Please note that this report is being documented using DRAGON technology. This can lead to erroneous entry secondary to incorrect interpretation by the dictating instrument. HPI: 43-year-old male with a history of asthma presents for evaluation of shortness of breath. Symptoms began today. He normally has controlled asthma with albuterol and fluticasone but states he felt wheezy and short of breath today. Denies cough. Denies sore throat, nasal congestion, fever, chills, chest pain, vomiting, diarrhea or other changes in his health. He called EMS because he did not feel he could take the bus to the emergency department today given his profound shortness of breath. He was given 1 breathing treatment en route by [facility] with improvement in his symptoms. He is now breathing comfortably and arrives with stable vital signs. Denies any complaints of chest pain or other complaints at this time. PMH: Asthma, bipolar disorder PSH: Denies Allergies: Denies Social Hx: Active smoker, uses marijuana, denies alcohol Allergies: Coded Allergies: No Known Allergies (Unverified , 09/26/14) Nursing Documentation-PMH Past Medical History: No History, Except For Hx Hypertension: Yes Hx Asthma: Yes Review of Systems All Other Systems: negative except mentioned in HPI Physical Exam Vital Signs Date Time Temp Pulse Resp B/P (MAP) Pulse Ox O2 Delivery O2 Flow Rate FiO2 01/18/19 21:42 98.2 64 18 156/103 (120) 100 Room Air General: Awake and alert, no acute distress HEENT: NC/AT. EOMI. Cardiovascular: RRR. S1 and S2 normal. No murmur appreciated Resp: Normal work of breathing. Faint wheezes in the upper lung walter on expiration bilaterally. No crackles, no cough Skin: Intact. No abrasions, laceration or rash over the exposed skin MSK: Normal tone and bulk. Moving all extremities. No obvious deformity. Neuro: Awake and alert. Mentating appropriately. Medical Decision Making Homeless Attestation Patient has been medically screened and is stable for outpatient follow up Diagnostic Impression: Primary Impression: Asthma exacerbation ER Course 43-year-old male presents for evaluation of shortness of breath beginning earlier today now improve his receiving a breathing treatment en route. The patient has multiple emergency department visit for asthma exacerbation with no recent steroid use is. He will be given an more duo nebs as well as prednisone as he still has some faint wheezes however his work of breathing is normal, saturating 99% on room air, normal heart rate no other indication of ACS, PE, pneumothorax, pneumonia or other significant pathology. We will obtain an EKG but otherwise do not believe he requires emergent labs or imaging at this time. EKG Diagnostic Results EKG Time: 21:50 Rate: normal Rhythm: NSR ST Segments: no acute changes Other Impression Sinus rhythm, normal axis, normal intervals, no ST segment changes Rhythm Strip Diag. Results Rhythm Strip Time: 21:50 EP Interpretation: yes Rate: 60s Rhythm: NSR, no PVC's, no ectopy Reevaluation Time: 00:56 Last Vital Signs Date Time Temp Pulse Resp B/P (MAP) Pulse Ox O2 Delivery O2 Flow Rate FiO2 01/18/19 21:42 98.2 64 18 156/103 (120) 100 Room Air Reevaluation Impression Patient received 3 breathing treatments in the emergency department. No wheezing, no respiratory distress, resting comfortably. I have refilled his prescriptions for albuterol, fluticasone and will start him on prednisone for an additional 4 days for asthma exacerbation. He can follow-up with 1 of the clinics listed in his paperwork. Also requesting help with mental health. He states he has been increasingly angry with a labile mood. He takes no medications for his mental health. Denies SI/HI. No plan. Stable for outpatient follow-up. 0120: After I discussed discharge follow-up with the patient he was handed his discharge paperwork by our nurse after which she became irate, yelling and screaming in the emergency department. He stated he did not want to leave and not be on the street any longer. Told the patient that he could wait in the waiting room however he was belligerent with staff and escorted out by security. Refused to sign discharge paperwork Disposition: HOME, SELF-CARE Condition: Stable Scripts Fluticasone/Vilanterol (Breo Ellipta 200-25 Mcg INH) 1 Each Blst.w.dev 1 EACH IH BID, #1 UNIT Prov: Rory Corbin MD 01/18/19 Prednisone* (PREDNISONE*) 20 Mg Tablet 40 MG ORAL DAILY, #8 TAB Prov: Rory Corbin MD 01/18/19 Albuterol Sulfate* (ALBUTEROL SULFATE MDI*) 8.5 Gm Hfa.aer.ad 2 PUFF INH Q4H PRN for cough/wheezing, #1 EA 0 Refills Prov: Rory Corbin MD 01/18/19 Rory Corbin MD Jan 18, 2019 22:08
--- NOTE | 2019-01-18 23:00 | NUR ---
ED Nurse Note: Patient is resting comfortably, provided with sandwich and juive upon request. Saturation on room air at normal percentage, will continue to monitor.
--- NOTE | 2019-01-18 23:50 | NUR ---
ED Nurse Note: Patient currently undergoing breathing treatment. Rt at bedside.
[2019-01-18] MEDS: Albuterol ud Inhalation HHN SCH (23:51)
[2019-01-18] MEDS ORDERED: BREO ELLIPTA 21 EACH IH (23:59)
[2019-01-18] MEDS ORDERED: PREDNISONE20 MG ORAL (23:59)
[2019-01-18] MEDS ORDERED: ALBUTEROL SULF8.5 GM INH (23:59)
[2019-01-19] MEDS: Albuterol ud Inhalation HHN SCH (00:24)
[2019-01-19 01:20] VITALS: BP 138/88
--- NOTE | 2019-01-19 01:22 | NUR ---
Homeless Discharge: Patient is being discharged from medical care. Awake, alert and oriented x4, at time of discharge, patient started to behave very angrily. slamming belongings on the wall. Security was called, at time of discharge patient does not report any distress. able to speak in full sentences while raising voice. o2 sat at 100%. patient is able to walk with a steady gait. patient has taken all belongings with him
== END 2019-01-19 01:20 | disposition home or self-care (01) ==
LOC: EDBD 21:45 → EMR 23:09
DX: J45.901 Unspecified asthma with (acute) exacerbation (principal); F31.9 Bipolar disorder, unspecified; I10 Essential (primary) hypertension; F17.200 Nicotine dependence, unspecified, uncomplicated; F19.10 Other psychoactive substance abuse, uncomplicated
CPT/HCPCS: 94640; 94664; J7512; Z7502; 99284

== ENCOUNTER → 2019-02-24 | Emergency (ER) | payer OTHER ==
[~2019-02-24] VITALS: Ht 185.4 cm; Wt 81.6 kg
[~2019-02-24] MED LIST changes: +Albuterol ud Inhalation HHN ONE; +Ipratropium 0.02% Inh Soln 2.5ml UD HHN ONE
--- NOTE | 2019-02-24 22:50 | NUR ---
ED Nurse Note:' PT BROUGHT IN BY RA Thakkar FROM [place] FOR C/O SOB SINCE 20:00 TODAY. PT STATES HE HAS HX OF ASTHMA AND TAKES ALBUTEROL BUT RAN OUT OF MEDICATION. PT IS AMBULATORY. PT RECEIVED ALBUTEROL BREATHING TX BY THE PARAMEDICS AND STATES HE FEELS BETTER. CURRENTLY SP02 95% IN ROOM AIR.
[2019-02-24 22:53] VITALS: BP 178/108
--- NOTE | 2019-02-24 22:59 | Emergency Room Report ---
History of Present Illness General Chief Complaint: Dyspnea/Respdistress Source: Patient Present Illness HPI This a 43-year-old male well-known to me. He has a history of asthma. Presents with asthma exacerbation. Onset today. He said he ran out of his inhaler. No nausea no vomiting. No fever chills. never been intubated. Last asthma attack that he had to go to the hospital was about 2 months ago. Last steroid use was about 2 months ago. He called 911. EMS gave him albuterol nebulizer and it helped him. No fever or chills. No vomiting or diarrhea. No chest pain. Worse with exertion. Better with inhaler. Allergies: Coded Allergies: No Known Allergies (Unverified , 09/26/14) Patient History Past Medical History: see triage record, old chart reviewed, asthma Past Surgical History: none Pertinent Family History: none Social History: Reports: smoking Immunizations: other Reviewed Nursing Documentation: PMH: Agreed; PSxH: Agreed Nursing Documentation-PMH Hx Hypertension: Yes Hx Asthma: Yes Review of Systems Eye: Denies: eye pain, blurred vision ENT: Denies: ear pain, nose congestion, throat swelling Respiratory: Reports: shortness of breath, wheezing; Denies: cough Cardiovascular: Denies: chest pain, palpitations Gastrointestinal: Denies: abdominal pain, diarrhea, nausea, vomiting Musculoskeletal: Denies: back pain, joint pain Skin: Denies: rash Neurological: Denies: headache, numbness Endocrine: Denies: increased thirst, increased urine Hematologic/Lymphatic: Denies: easy bruising All Other Systems: negative except mentioned in HPI Physical Exam Sp02 EP Interpretation: reviewed, normal General Appearance: well appearing, no apparent distress, alert Head: normocephalic, atraumatic Eyes: bilateral eye PERRL, bilateral eye EOMI ENT: hearing grossly normal, normal pharynx Neck: full range of motion, supple, no meningismus Respiratory: chest non-tender, decreased breath sounds, accessory muscle use, wheezing Cardiovascular #1: regular rate, rhythm, no murmur Gastrointestinal: normal bowel sounds, non tender, no mass, no organomegaly, no bruit, non-distended Musculoskeletal: back normal, normal range of motion, gait/station normal Psychiatric: mood/affect normal Medical Decision Making Diagnostic Impression: Primary Impression: Asthma exacerbation Qualified Codes: J45.21 - Mild intermittent asthma with (acute) exacerbation ER Course Patient presents with asthma exacerbation. Better with nebulizer treatment. Steroid given here. No evidence of ACS, PE, pneumonia or other serious bacterial infection. Will discharge home. Status: improved Disposition: HOME, SELF-CARE Condition: Stable Scripts Prednisone* (PREDNISONE*) 20 Mg Tablet 40 MG ORAL DAILY, #8 TAB Prov: Jason Monte MD 02/24/19 Albuterol Sulfate* (ALBUTEROL SULFATE MDI*) 8.5 Gm Hfa.aer.ad 2 PUFF INH Q4H PRN for cough/wheezing, #1 EA 0 Refills Prov: Jason Monte MD 02/24/19 Additional Instructions: Follow-up with your doctor in 7 days. Return if symptoms worsen. Jason Monte MD Feb 24, 2019 22:59
--- NOTE | 2019-02-24 23:13 | NUR ---
ED Nurse Note: PT RECEIVING BREATHING TX AT BEDSIDE.
--- NOTE | 2019-02-25 00:45 | NUR ---
ED Nurse Note: SANDWICH AND BEVERAGE PROVIDED TO PT.
[2019-02-25 01:11] VITALS: BP 170/100
--- NOTE | 2019-02-25 01:11 | NUR ---
ED Nurse Note: PT RECEIVING BREATHING TX AT BEDSIDE AT THIS TIME. NO ACUTE DISTRESS IS NOTED.
--- NOTE | 2019-02-25 03:11 | NUR ---
ED Nurse Note: Report given to PRANAV Mcclure
[2019-02-25 05:30] VITALS: BP 145/92
--- NOTE | 2019-02-25 05:30 | NUR ---
ER Nurse Note: Pt treated, seen, cleared for discharge by ERMGrisel. Discharge instructions given within repeat verbalization by pt. Encouraged pt to follow up with primary care provider or free clinic within one week. Homeless discharge from signed by pt and MD. Pt VSS, no signs of distress, denies pain. ID band removed. Pt steady gait, left with all belongings. Pt signed homeless discharge form but refused to share location after discharge. Pt stated "I have a place I feel safe and I don't want you to know where it is". Pt was provided extra amount of time to rest, wash up, and pack all belongings. Pt was given water and sandwich. Pt has appropriate weather clothing.
== END | disposition home or self-care (01) ==
LOC: EDUNIT# 22:49 → EDBD 22:50 → EMR 23:09
DX: J45.21 Mild intermittent asthma with (acute) exacerbation (principal); I10 Essential (primary) hypertension; F17.200 Nicotine dependence, unspecified, uncomplicated; Z79.51 Long term (current) use of inhaled steroids
CPT/HCPCS: J7512; Z7502; 99284

== ENCOUNTER 2019-04-07 18:25 | Emergency (ER) | payer OTHER ==
[~2019-04-07] VITALS: Ht 185.4 cm; Wt 82.6 kg
[~2019-04-07 18:25] MED LIST changes: -Albuterol ud Inhalation HHN ONE; -Ipratropium 0.02% Inh Soln 2.5ml UD HHN ONE
[2019-04-07] MEDS ORDERED: Albuterol/Ipratropium 3ml neb HHN ONE (18:45)
[2019-04-07] MEDS ORDERED: PREDNISONE20 MG ORAL (18:50)
[2019-04-07] MEDS ORDERED: ALBUTEROL SULF8.5 GM INH (18:50)
--- NOTE | 2019-04-07 18:52 | NUR ---
ED Nurse Note:Pt walked in from the streets c/o asthma exacerbation, ran out of albuterol. patient is audibly wheezing, but able to speak in full sentences. Vitals stable as documented.
[2019-04-07 18:53] VITALS: BP 148/94
--- NOTE | 2019-04-07 19:02 | NUR ---
ED Nurse Note: Report given to PRANAV Feliz
[2019-04-07 19:10] VITALS: BP 148/94
--- NOTE | 2019-04-07 19:10 | NUR ---
ED Nurse Note: Pt cleared by health care Provider for discharge. DC instructions/prescription was given and explained to pt. pt verbalized understanding of teachings. All medical deviecs such as ID band removed. Pt is AAO x4, ambulatory and left with all personal belongings.
--- NOTE | 2019-04-10 09:31 | Emergency Room Report ---
History of Present Illness General Chief Complaint: Asthma Source: Patient Present Illness HPI Is a 43-year-old male with a prior history of asthma who presents after increased difficulty with breathing. He reports having taking inhaler at home. He had run out of his albuterol. Reports of increased nonproductive cough. Denies any fever. Previously been on steroids but has not currently been taking any. Denies any recent hospitalizations or intubation. Allergies: Coded Allergies: No Known Allergies (Unverified , 09/26/14) Patient History Past Medical History: see triage record Reviewed Nursing Documentation: PMH: Agreed; PSxH: Agreed Nursing Documentation-PM Past Medical History: No History, Except For Hx Hypertension: Yes Hx Asthma: Yes Review of Systems All Other Systems: negative except mentioned in HPI Physical Exam Vital Signs Date Time Temp Pulse Resp B/P (MAP) Pulse Ox O2 Delivery O2 Flow Rate FiO2 04/07/19 18:34 98.4 94 22 152/97 (115) 95 Room Air 04/07/19 19:00 21 Sp02 EP Interpretation: reviewed, normal General Appearance: normal inspection, well appearing, no apparent distress, alert, GCS 15 Head: atraumatic ENT: normal ENT inspection, hearing grossly normal, normal voice Neck: normal inspection, full range of motion, supple, no bony tend Respiratory: normal inspection, no respiratory distress, no retraction, wheezing Cardiovascular #1: regular rate, rhythm, no edema Gastrointestinal: normal inspection, normal bowel sounds, non tender, soft, no guarding, no hernia Genitourinary: no CVA tenderness Musculoskeletal: normal inspection, back normal, normal range of motion Neurologic: alert, responsive, speech normal, normal inspection Psychiatric: normal inspection, judgement/insight normal, mood/affect normal Medical Decision Making Diagnostic Impression: Primary Impression: Asthma exacerbation ER Course Patient presented for shortness of breath. Differential diagnosis included but was not limited to asthma exacerbation, pneumonia, pneumothorax, congestive heart failure, viral respiratory infection, pulmonary embolism, anaphylaxis among others. Patient was placed in the examination room and evaluated by me immediately. Patient was checked periodically to assure stability and response to treatment. He was noted to have prior history of asthma. Does not appear to have risk for pulmonary embolism and has equal breath sounds. No history of recent hospitalization or intubation. No recent steroid use. Patient was initially noted to have minimal respiratory distress with mild wheezing and good air movement. Patient was given breathing treatment. He was reexamined after breathing treatment and had improvement in air movement. Patient appears stable for outpatient management. Patient was given prescription for oral steroids as well as albuterol. Patient was advised to recheck with primary care physician in 1-2 days. Patient to return for any worsening or other concerns. Last Vital Signs Date Time Temp Pulse Resp B/P (MAP) Pulse Ox O2 Delivery O2 Flow Rate FiO2 04/07/19 19:10 98.4 94 18 148/94 100 Room Air 21 Status: improved Disposition: HOME, SELF-CARE Condition: Stable Scripts Albuterol Sulfate* (ALBUTEROL SULFATE MDI*) 8.5 Gm Hfa.aer.ad 2 PUFF INH Q4H, #1 INH 0 Refills Prov: Radames Veliz MD 04/07/19 Prednisone* (PREDNISONE*) 20 Mg Tablet 40 MG ORAL DAILY, #10 TAB Prov: Radames Veliz MD 04/07/19 Referrals: [facility],REFERRING (PCP) Patient Instructions: Asthma, Adult Radames Veliz MD Apr 10, 2019 09:31
== END 2019-04-07 19:10 | disposition home or self-care (01) ==
LOC: EMR 18:40
DX: J45.901 Unspecified asthma with (acute) exacerbation (principal); I10 Essential (primary) hypertension
CPT/HCPCS: J7512; Z7502; 99284; J7620